=== PATIENT | female | born 1950 | race Caucasian/White ===

== ENCOUNTER 2020-10-17 18:18 | Inpatient (IN) | payer MEDICARE, OTHER, SELFPAY ==
[2020-10-17 18:05] VITALS: BP 165/63; PULSE 87; RESP 18; O2SAT 98
--- NOTE | 2020-10-17 18:45 | DI.RAD.S_ITS ---
PROCEDURE: XR HIP W PEL IF DONE RT 2V INDICATIONS: fall/unable to bare weight TECHNIQUE: AP pelvis with lateral view(s) of the right hip(s). COMPARISON: None. FINDINGS: Bones: Minimally displaced trochanteric fracture of the right hip. No dislocation. Pelvic ring appears intact. No suspicious bony lesions. Soft tissues: The visualized bowel gas pattern is normal. No suspicious soft tissue calcifications. IMPRESSION: Minimally displaced trochanteric fracture of the right hip. Dictated by: William Valdivia M.D. on 10/17/2020 at 20:51 Approved by: William Valdivia M.D. on 10/17/2020 at 20:52
[2020-10-17] MEDS: ONDANSETRON 4 MG/2 ML INJ IV (19:37)
[2020-10-17] MEDS: fentaNYL 100 MCG/2 ML INJ 50 MCG IV ×2 (19:37→20:15)
[2020-10-17 19:41] LABS: Add Manual Diff / Slide Review NO; Basophils Absolute Auto 100 /uL (0-100); Basophils Percent Auto 1.1 % (0-2); Eosinophils Absolute Auto 200 /uL (0-450); Eosinophils Percent Auto 2.1 % (2-4); Hematocrit 36.4 % (36-46); Hemoglobin 12.3 g/dL (12.0-16.0); Lymphocytes Absolute Auto 2000 /uL (1100-4500); Lymphocytes Percent Auto 24.3 % (25-40); Mean Corpuscular HGB Conc 33.7 % (30-36); Mean Corpuscular Hemoglobin 30.4 PG (26-34); Mean Corpuscular Volume 90.4 fL (80-100); Monocytes Absolute Auto 600 /uL (0-900); Monocytes Percent Auto 7.8 % (3-14); Neutrophils Absolute Auto 5400 /uL (1500-7000); Neutrophils Percent Auto 64.7 % (50-75); Platelet Count 261 X10^3/uL (150-400); Red Blood Cell Count 4.03 X10^6/uL (4.0-5.2); Red Cell Distribution Width 13.3 % (11.6-14.8); White Blood Cell Count 8.3 X10^3/uL (4.5-11.0)
[2020-10-17 19:45] VITALS: TEMP 37.1
[2020-10-17 19:53] LABS: Prothrombin Time 11.6 SECONDS (10.1-12.7)
[2020-10-17 20:05] LABS: Alanine Aminotransferase 24 IU/L (<35); Albumin 4.2 g/dL (3.5-5.0); Albumin Globulin Ratio 1.4 (1.0-2.8); Alkaline Phosphatase 73 U/L (38-126); Aspartate Aminotransferase 37 IU/L (14-36); BUN Creatinine Ratio 30.6 (6-22); Bilirubin Total 0.2 mg/dL (0.2-1.3); Blood Urea Nitrogen 19 mg/dL (7-17); Calcium 9.4 mg/dL (8.4-10.2); Carbon Dioxide 26 mmol/L (22-32); Chloride 105 mmol/L (98-107); Estimated Glomerular Filt Rate > 60.0 mL/min (>60); Globulin 2.9 g/dL (1.7-4.1); Glucose 113 mg/dL (80-110); HEMOLYSIS < 15 (0-50); Potassium 3.7 mmol/L (3.4-5.1); Sodium 140 mmol/L (137-145); Total Protein 7.1 g/dL (6.3-8.2)
--- NOTE | 2020-10-17 20:10 | ED_ITS ---
HPI - Extremity Injury (Lower) General Chief Complaint: Extremity Injury, Lower Stated Complaint: Fall/R hip pain Time Seen by Provider: 10/17/20 18:23 Source: patient Mode of arrival: Ambulatory Limitations: no limitations History of Present Illness HPI Narrative: 70-year-old female nonsmoker with noncontributory medical history presents with a chief complaint of a ground level fall in which she landed on her right hip and now has significant pain. She denies any head neck or back pain. She does not take blood thinners. She denies any prodromal symptoms and states that she was merely pulled over by her dog. She has significant pain with any range of motion and denies any numbness, tingling or weakness. MD complaint: hip injury Onset (ago): minute(s) Injury: Right: hip Type of Injury: blunt Place: street/outdoors Severity: severe Relieving factors: immobilization and rest Exacerbating factors: weight bearing, movement and palpation Context: fall and direct blow Other symptoms: none Related Data Home Medications Medication Instructions Recorded Confirmed atenolol [Tenormin] 25 mg PO BID 10/18/20 10/18/20 simvastatin 20 mg PO QPM 10/18/20 10/18/20 Allergies Allergy/AdvReac Type Severity Reaction Status Date / Time Penicillins Allergy Unknown Verified 10/17/20 19:34 Review of Systems Constitutional Constitutional: Denies chills, Denies fatigue, Denies fever(s), Denies frequent falls, Denies lethargy and Denies weakness Eyes Eyes: Denies change in vision, Denies eye discharge, Denies irritation and Denies loss of vision ENT Ears, Nose, Mouth, and Throat: Denies change in voice, Denies dizziness, Denies neck pain, Denies sore throat and Denies throat swelling Cardiovascular Cardiovascular: Denies chest pain, Denies irregular heart rhythm, Denies lightheadedness, Denies palpitations, Denies dyspnea, Denies dyspnea on exertion and Denies orthopnea Respiratory Respiratory: Denies cough, Denies dyspnea, Denies dyspnea on exertion and Denies wheezing Gastrointestinal Gastrointestinal: Denies abdominal pain, Denies change in bowel habits, Denies diarrhea, Denies nausea and Denies vomiting Musculoskeletal Musculoskeletal: Reports arthralgias, Denies neck pain and Denies numbness Integumentary/Breasts Skin/Breast: Denies pruritus, Denies erythema, Denies rash and Denies wounds Neurologic Neurologic: Denies behavioral changes, Denies confusion, Denies dizziness, Denies frequent falls, Denies loss of vision, Denies numbness and Denies weakness Psychiatric Psychiatric: Denies anxiety, Denies behavioral changes, Denies confusion, Denies depression, Denies homicidal ideation and Denies suicidal ideation Endocrine Endocrine: Denies fatigue, Denies flushing and Denies palpitations Hematologic/Lymphatic Hematologic/Lymphatic: Denies easy bruising Allergic/Immunologic Allergic/Immunologic: Denies urticaria, Denies throat swelling and Denies wheezing Patient History Social History household members: significant other and friend(s) Smoking Status: Never smoker Smoking Status: Never smoker Substance Use Type: does not use Exam Narrative Exam Narrative: GENERAL: [70] year old patient appears stated age. Well- nourished, well-developed patient, in obvious distress, clearly in pain HEAD: Atraumatic. Normocephalic. EYES: Pupils equal round and reactive. Extraocular motions intact. No scleral icterus. No injection or drainage. ENT: Nose without bleeding, purulent drainage. Throat without erythema, tonsillar hypertrophy or exudate. Airway patent. NECK: Trachea midline. Non tender CARDIOVASCULAR: Regular rate and rhythm without murmurs, gallops, or rubs. RESPIRATORY: Clear to auscultation. Breath sounds equal bilaterally. No wheezes, rales, or rhonchi. GASTROINTESTINAL: Abdomen soft, non-tender, nondistended. EXTREMITIES: Tender to palpation of right lateral hip, no obvious shortening or rotation, this is closed, isolated and neurovascularly intact BACK: Nontender without deformity or crepitance. No flank tenderness. NEURO: AOx3. SKIN: No rash or erythema of visible areas Initial Vital Signs Initial Vital Signs: Vital Signs Pulse Rate 87 10/17/20 18:05 Respiratory Rate 18 10/17/20 18:05 Blood Pressure 165/63 H 10/17/20 18:05 Pulse Oximetry 98 10/17/20 18:05 Course Orders Ordered: ED Orders 10/17/20 19:28 Complete Blood Count AUTO DIFF Stat Comprehensive Metabolic Panel Stat Prothrombin Time INR Stat 10/17/20 20:18 CT pelvis wo con Stat 10/17/20 21:34 COVID19 - ADMIT (LITHOPONE CHARGER swab/PCR) Stat Acetaminophen (Acetaminophen 325 Mg Tablet) 650 mg PO Q6HR PRN PRN Reason: Fever/Mild Pain (1-3) Al Hydrox/Mg Hydrox/Simethicone (Mag Hydrox/Alum/Simeth 30 Ml Udc) 30 ml PO Q6HR PRN PRN Reason: Dyspepsia Atenolol (Atenolol 25 Mg Tablet) 25 mg PO BID [facility] Docusate Sodium (Docusate 100 Mg Capsule) 100 mg PO BID [facility] Lactated Ringer's (Lactated Ringers) 1,000 mls @ 60 mls/hr IV CONT THOR Last Admin: 10/17/20 23:31 Dose: 60 mls/hr Documented by: KIRK Ketorolac Tromethamine (Ketorolac 30 Mg/Ml Vial) 30 mg IV Q6HR PRN PRN Reason: Pain, Severe (7-10) Stop: 10/22/20 22:20 Last Admin: 10/18/20 02:27 Dose: 30 mg Documented by: KIRK Magnesium Hydroxide (Magnesium Hydroxide 30 Ml Udc) 30 ml PO DAILY PRN PRN Reason: Constipation Naloxone HCl (Naloxone 0.4 Mg/Ml Vial) 0.2 mg IV Q2MIN PRN PRN Reason: Opiate Reversal Ondansetron HCl (Ondansetron 4 Mg/2 Ml Inj) 4 mg IV Q8HR PRN PRN Reason: Nausea And Vomiting Last Admin: 10/18/20 00:30 Dose: 4 mg Documented by: KIRK Oxycodone HCl (Oxycodone Ir 5 Mg Tablet) 5 mg PO Q6HR PRN PRN Reason: Pain, Moderate (4-6) Pantoprazole Sodium (Pantoprazole Dr 20 Mg Tablet) 20 mg PO 0600 [facility] Sennosides (Sennosides 8.6 Mg Tablet) 17.2 mg PO BEDTIME [facility] Discontinued Medications Atenolol (Atenolol 25 Mg Tablet) 25 mg PO NOW ONE Stop: 10/17/20 23:47 Last Admin: 10/18/20 00:22 Dose: 25 mg Documented by: KIRK Fentanyl (Fentanyl 100 Mcg/2 Ml Inj) 50 mcg IV NOW ONE Stop: 10/17/20 19:34 Last Admin: 10/17/20 19:37 Dose: 50 mcg Documented by: CATHY Fentanyl (Fentanyl 100 Mcg/2 Ml Inj) 50 mcg IV NOW ONE Stop: 10/17/20 20:13 Last Admin: 10/17/20 20:15 Dose: 50 mcg Documented by: CATHY Hydromorphone HCl (Hydromorphone 1 Mg Inj) 1 mg IV NOW ONE Stop: 10/17/20 20:27 Last Admin: 10/17/20 20:40 Dose: 1 mg Documented by: CATHY Hydromorphone HCl (Hydromorphone 1 Mg Inj) 1 mg IV NOW ONE Stop: 10/17/20 22:46 Last Admin: 10/17/20 22:48 Dose: 1 mg Documented by: CATHY Ondansetron HCl (Ondansetron 4 Mg/2 Ml Inj) 4 mg IV NOW ONE Stop: 10/17/20 19:34 Last Admin: 10/17/20 19:37 Dose: 4 mg Documented by: CATHY Consultations Consultation #1: discussed with Dr. Lange, request patient be kept NPO and will see early in the morning Consultation #2: hospitalist happy to accept Vital Signs Vital signs: Vital Signs - 8 hr 10/17/20 20:44 10/17/20 21:56 Pulse Rate 72 72 Respiratory Rate 16 17 Blood Pressure 153/72 H 168/72 H Pulse Oximetry 100 98 MDM - Extremity Injury (Lower) Lab Data Result diagrams: 10/17/20 19:28 10/17/20 19:28 Labs: Lab Results 10/17/20 10/17/20 10/17/20 Range/Units 19:28 19:28 19:28 WBC 8.3 (4.5-11.0) X10^3/uL RBC 4.03 (4.0-5.2) X10^6/uL Hgb 12.3 (12.0-16.0) g/dL Hct 36.4 (36-46) % MCV 90.4 (80-100) fL MCH 30.4 (26-34) PG MCHC 33.7 (30-36) % RDW 13.3 (11.6-14.8) % Plt Count 261 (150-400) X10^3/uL Neut % (Auto) 64.7 (50-75) % Lymph % (Auto) 24.3 L (25-40) % [place] % (Auto) 7.8 (3-14) % Eos % (Auto) 2.1 (2-4) % Baso % (Auto) 1.1 (0-2) % Neut # (Auto) 5400 (5895-8027) /uL Lymph # (Auto) 2000 (0546-4698) /uL [place] # (Auto) 600 (0-900) /uL Eos # (Auto) 200 (0-450) /uL Baso # (Auto) 100 (0-100) /uL PT 11.6 (10.1-12.7) SECONDS INR 1.0 (0.9-1.3) Sodium 140 (137-145) mmol/L Potassium 3.7 (3.4-5.1) mmol/L Chloride 105 (98-107) mmol/L Carbon Dioxide 26 (22-32) mmol/L BUN 19 H (7-17) mg/dL Creatinine 0.62 (0.52-1.04) mg/dL Estimated GFR > 60.0 (>60) mL/min BUN/Creatinine Ratio 30.6 H (6-22) Glucose 113 H (80-110) mg/dL Calcium 9.4 (8.4-10.2) mg/dL Magnesium (1.6-2.3) mg/dL Total Bilirubin 0.2 (0.2-1.3) mg/dL AST 37 H (14-36) IU/L ALT 24 (<35) IU/L Alkaline Phosphatase 73 (38-126) U/L Total Protein 7.1 (6.3-8.2) g/dL Albumin 4.2 (3.5-5.0) g/dL Globulin 2.9 (1.7-4.1) g/dL Albumin/Globulin Ratio 1.4 (1.0-2.8) SARS-CoV-2 (PCR) (Negative) 10/17/20 10/17/20 Range/Units 19:28 21:34 WBC (4.5-11.0) X10^3/uL RBC (4.0-5.2) X10^6/uL Hgb (12.0-16.0) g/dL Hct (36-46) % MCV (80-100) fL MCH (26-34) PG MCHC (30-36) % RDW (11.6-14.8) % Plt Count (150-400) X10^3/uL Neut % (Auto) (50-75) % Lymph % (Auto) (25-40) % [place] % (Auto) (3-14) % Eos % (Auto) (2-4) % Baso % (Auto) (0-2) % Neut # (Auto) (3921-8714) /uL Lymph # (Auto) (5795-9349) /uL [place] # (Auto) (0-900) /uL Eos # (Auto) (0-450) /uL Baso # (Auto) (0-100) /uL PT (10.1-12.7) SECONDS INR (0.9-1.3) Sodium (137-145) mmol/L Potassium (3.4-5.1) mmol/L Chloride (98-107) mmol/L Carbon Dioxide (22-32) mmol/L BUN (7-17) mg/dL Creatinine (0.52-1.04) mg/dL Estimated GFR (>60) mL/min BUN/Creatinine Ratio (6-22) Glucose (80-110) mg/dL Calcium (8.4-10.2) mg/dL Magnesium 2.1 (1.6-2.3) mg/dL Total Bilirubin (0.2-1.3) mg/dL AST (14-36) IU/L ALT (<35) IU/L Alkaline Phosphatase (38-126) U/L Total Protein (6.3-8.2) g/dL Albumin (3.5-5.0) g/dL Globulin (1.7-4.1) g/dL Albumin/Globulin Ratio (1.0-2.8) SARS-CoV-2 (PCR) Negative (Negative) Imaging Data Extremity x-ray #1: Radiologist's Impression: [address] [id number] ReportSigned Patient: Stephania Cruz#: [id number]: 1950cct:[id number]/Sex: 70 / FDate of Service: 10/17/20Loc: EDAccession Number: [id number] Procedure: XR hip w pel if done RT 2V Ordering Provider: Jean Bauman D.O. PROCEDURE: XR HIP W PEL IF DONE RT 2V INDICATIONS: fall/unable to bare weight TECHNIQUE: AP pelvis with lateral view(s) of the right hip(s). COMPARISON: None. FINDINGS: Bones: Minimally displaced trochanteric fracture of the right hip. No dislocation. Pelvic ring appears intact. No suspicious bony lesions. Soft tissues: The visualized bowel gas pattern is normal. No suspicious soft tissue calcifications. IMPRESSION: Minimally displaced trochanteric fracture of the right hip. Dictated by: William Valdivia M.D. on 10/17/2020 at 20:51 Approved by: William Valdivia M.D. on 10/17/2020 at 20:52 CT scan - abdomen/pelvis: Radiologist's Impression: [address] [id number] Scan ReportSigned Patient: Stephania Cruz#: [id number]: [id number]:[id number]/Sex: 70 / FDate of Service: 10/17/20Loc: EDAccession Number: [id number] Procedure: CT pelvis wo con Ordering Provider: Jean Bauman D.O. PROCEDURE: CT PEL WO CON INDICATIONS: severe pain, Right hip and groin TECHNIQUE: Noncontrast 2 mm axial sections acquired through the bony pelvis, with coronal and sagittal reformatting. COMPARISON: None. FINDINGS: Image quality: Excellent. Bones: Comminuted trochanteric fracture of the right hip. No other fractures or dislocations. Soft tissues: Unremarkable IMPRESSION: Comminuted trochanteric fracture of the right hip. Dictated by: William Valdivia M.D. on 10/17/2020 at 21:11 Approved by: William Valdivia M.D. on 10/17/2020 at 21:13 Discharge Plan Departure Patient Disposition: Admitted As Inpatient Clinical Impression: Hip fracture Admit Date/Time: 10/17/20 22:03 Admit Provider: Roselyn Rosenthal
--- NOTE | 2020-10-17 20:18 | DI.CT.S_ITS ---
PROCEDURE: CT PEL WO CON INDICATIONS: severe pain, Right hip and groin TECHNIQUE: Noncontrast 2 mm axial sections acquired through the bony pelvis, with coronal and sagittal reformatting. COMPARISON: None. FINDINGS: Image quality: Excellent. Bones: Comminuted trochanteric fracture of the right hip. No other fractures or dislocations. Soft tissues: Unremarkable IMPRESSION: Comminuted trochanteric fracture of the right hip. Dictated by: William Valdivia M.D. on 10/17/2020 at 21:11 Approved by: William Valdivia M.D. on 10/17/2020 at 21:13
[2020-10-17] MEDS: HYDROMORPHONE 1 MG INJ IV ×2 (20:40→22:48)
[2020-10-17 20:44] VITALS: BP 153/72; PULSE 72; RESP 16; O2SAT 100
[2020-10-17 21:56] VITALS: BP 168/72; PULSE 72; RESP 17; O2SAT 98
[2020-10-17 22:34] LABS: Magnesium 2.1 mg/dL (1.6-2.3)
[2020-10-17 22:35] LABS: COVID19 - ADMIT (NP swab/PCR) Negative (Negative)
[2020-10-17 22:49] VITALS: BP 141/71; PULSE 72; RESP 16
[2020-10-17 23:30] VITALS: O2SAT 97
[2020-10-17] MEDS: LACTATED RINGERS 1,000 ML 60 ML IV (23:31)
[2020-10-17 23:32] VITALS: BMI 28.2
[2020-10-18] VITALS (23 sets, daily range): BP systolic 117–153; BP diastolic 61–77; PULSE 49–68; RESP 9–18; TEMP 35.9–37.6; O2SAT 95–98; BMI 27.1
--- NOTE | 2020-10-18 | DI.RAD.S_ITS ---
PROCEDURE: XR HIP W PEL IF DONE RT 2V INDICATIONS: DHS TECHNIQUE: 4 immediate postoperative views of the hip were acquired after dynamic hip screw placement and lateral fixation plate.. COMPARISON: [facility], CR, XR HIP W PEL IF DONE RT 2V, 10/17/2020, 20:31. FINDINGS: Bones: No previously on identified fractures or dislocations. No suspicious bony lesions. The visualized pelvic ring appears intact. Soft tissues: No suspicious soft tissue calcifications or masses. IMPRESSION: Normal alignment is established after placement of right-sided dynamic hip screw associated with treatment of a minimally displaced inter trochanteric right hip fracture. Normal alignment is established for healing. Dictated by: Maciej Freeman M.D. on 10/18/2020 at 10:59 Approved by: Maciej Freeman M.D. on 10/18/2020 at 11:00
[2020-10-18] MEDS: atenoloL 25 MG TABLET PO ×3 (00:22→21:11)
[2020-10-18] MEDS: ONDANSETRON 4 MG/2 ML INJ IV ×2 (00:30→11:18)
[2020-10-18] MEDS: KETOROLAC 30 MG/ML VIAL IV (02:27)
--- NOTE | 2020-10-18 02:36 | PC.NURSE ---
Admitted to room 216 diagnosed with Right hip trochanteric fracture. Oriented to her room, showed her how to use her call light TV & bed controls. Fall precautions implemented, call light with in reached & bed alarm on. Instructed not to get OOB with out any assistance & to use the bedpan if she needs to have a bowel movement. Will cont. POC & monitor.
[2020-10-18 05:18] LABS: Add Manual Diff / Slide Review NO; Basophils Absolute Auto 100 /uL (0-100); Basophils Percent Auto 0.6 % (0-2); Eosinophils Absolute Auto 0 /uL (0-450); Eosinophils Percent Auto 0.1 % (2-4); Hematocrit 33.2 % (36-46); Hemoglobin 11.3 g/dL (12.0-16.0); Lymphocytes Absolute Auto 1500 /uL (1100-4500); Lymphocytes Percent Auto 14.7 % (25-40); Mean Corpuscular Hemoglobin 30.8 PG (26-34); Mean Corpuscular Volume 90.5 fL (80-100); Monocytes Absolute Auto 800 /uL (0-900); Monocytes Percent Auto 7.5 % (3-14); Neutrophils Absolute Auto 7800 /uL (1500-7000); Neutrophils Percent Auto 77.1 % (50-75); Platelet Count 217 X10^3/uL (150-400); Red Blood Cell Count 3.67 X10^6/uL (4.0-5.2); Red Cell Distribution Width 13.5 % (11.6-14.8); White Blood Cell Count 10.1 X10^3/uL (4.5-11.0)
[2020-10-18 05:28] LABS: INR 1.1 (0.9-1.3); Prothrombin Time 12.7 SECONDS (10.1-12.7)
[2020-10-18 05:34] LABS: BUN Creatinine Ratio 35.2 (6-22); Blood Urea Nitrogen 19 mg/dL (7-17); Calcium 9.1 mg/dL (8.4-10.2); Carbon Dioxide 27 mmol/L (22-32); Chloride 103 mmol/L (98-107); Estimated Glomerular Filt Rate > 60.0 mL/min (>60); Glucose 122 mg/dL (80-110); HEMOLYSIS 26 (0-50); Potassium 4.5 mmol/L (3.4-5.1); Sodium 134 mmol/L (137-145)
--- NOTE | 2020-10-18 05:46 | PM.HP.1 ---
History of Present Illness History of Present Illness Date Patient Seen: 10/17/20 Time Patient Seen: 22:23 Chief complaint: Fall/R hip pain Narrative: Patient is a 70-year-old female Madhavi Cruz who presents to the ED with a chief complaint of a ground level fall in which she landed on her right hip and now has significant pain. She denies any head neck or back pain. She does not take blood thinners. Denies hitting her head or loss of consciousness. She denies any prodromal symptoms and states that she was merely pulled over by her dog([place] Fernando) getting tangled up in his leash. She has significant pain with any range of motion and denies any numbness, tingling or weakness. Patient denies chest pain or shortness of breath. Patient has a history of mitral valve prolapse, hyperlipidemia, hypertension, and a pelvis fracture a few years ago that did not require surgical intervention. She had a bone density of few years ago but was only required to take calcium and vitamin-D. Upon admit to the floor patient is resting comfortably in bed and only has pain with movement her pain is well controlled at 4/10 at this time. Patient's vitals upon admit temp 98.7?, BP 160/72, HR 72, RR 17, O2 saturation 98% on room air. Patient's labs CBC WNL, CMP unremarkable. Pelvis CT:Comminuted trochanteric fracture of the right hip. Right Hip Xray:Minimally displaced trochanteric fracture of the right hip. Patient admitted for trochanter right hip fracture, NPO at midnight will have surgery tomorrow. Patient History Medical History (Updated 10/18/20 @ 05:53 by HELEN Love) History of deviated nasal septum Hyperlipidemia Hypertension Mitral valve prolapse Surgical History (Updated 10/18/20 @ 05:53 by HELEN Love) History of appendectomy History of cataract surgery Family & Social History Family History Mother Colon cancer Breast cancer Brother Bladder cancer Social History: household members significant other x 15 yrs, retired Prior Living Arrangements House Safety & Behavioral: Feels Safe in Current Yes Environment Been Physically Hurt or No Threatened By a Person Suicidal Ideation Description None Suicide Plan Description No Plan Tobacco & Substance use: Smoking Status quit 30 yrs ago alcohol intake frequency a few times a week 1-2 glasses of wine Substance Use Type Never Meds Home Medications and Allergies Home Medications Medication Instructions Recorded Confirmed Type atenolol [Tenormin] 25 mg PO BID 10/18/20 10/18/20 History simvastatin 20 mg PO QPM 10/18/20 10/18/20 History Allergies Allergy/AdvReac Type Severity Reaction Status Date / Time Penicillins Allergy Unknown Verified 10/17/20 19:34 Review of Systems Review of Systems ROS: Yes All systems reviewed with the patient and are negative except as otherwise documented Musculoskeletal Musculoskeletal: Reports arthralgias, Reports joint swelling, Reports limited range of motion and Reports radiating pain into limb Exam Vital Signs (past 8 hours): - 10/17/20 21:56 10/17/20 22:49 10/17/20 23:30 Temperature Pulse Rate 72 72 Respiratory Rate 17 16 Blood Pressure 168/72 H 141/71 H Pulse Oximetry 98 97 10/18/20 00:05 10/18/20 03:00 10/18/20 03:53 Temperature 98.3 F 98.0 F Pulse Rate 59 L 56 L Respiratory Rate 18 18 Blood Pressure 138/77 118/75 Pulse Oximetry 96 98 98 Oxygen Delivery Method Room Air Oxygen Flow Rate 0 Narrative Exam Narrative: General: Patient is a well-developed, well-nourished female who appears younger than stated age, in mild discomfort at this time. HEENT: Normocephalic, atraumatic, extraocular muscles intact, oral pharynx is clear and mucous membranes are moist. Neck is supple and symmetric, trachea is midline, no adenopathy, no thyroid enlargement, nontender, no masses palpated. Negative for JVD Chest: Normal AP diameter and contour without kyphoscoliosis, no nasal flaring, retractions, or tachypneic labored Lungs: Auscultation of all lung gonzalez are clear without adventitious sounds, wheezes, rhonchi, or rales. Cardio: S1 & S2 with regular rate and rhythm without murmur, rubs, or gallops, no carotid bruit, no cardiac pulsations present. Abdomen: Soft nontender, negative for organomegaly, or masses. Bowel sounds are present in all 4 quadrants without guarding or rebound, no CVA tenderness. Musculoskeletal: Right hip :Tender to palpation, no obvious shortening or rotation, this is closed, isolated and neurovascularly intact, without signs of infection. Skin: Warm dry and intact without rashes, ulcerations or petechiae. Neuro: Alert and orientated x3,sensation to touch intact, no gross deficits noted of cranial nerves. Psych: Patient has a well-kept appearance, appropriate affect, mental status attitude thought context and judgment are appropriate for age. Objective Labs Result Diagrams: 10/18/20 05:10 10/18/20 05:10 Labs: Laboratory Results - last 24 hr 10/17/20 10/17/20 10/17/20 19:28 19:28 19:28 WBC 8.3 RBC 4.03 Hgb 12.3 Hct 36.4 MCV 90.4 MCH 30.4 MCHC 33.7 RDW 13.3 Plt Count 261 Neut % (Auto) 64.7 Lymph % (Auto) 24.3 L [place] % (Auto) 7.8 Eos % (Auto) 2.1 Baso % (Auto) 1.1 Neut # (Auto) 5400 Lymph # (Auto) 2000 [place] # (Auto) 600 Eos # (Auto) 200 Baso # (Auto) 100 PT 11.6 INR 1.0 Sodium 140 Potassium 3.7 Chloride 105 Carbon Dioxide 26 BUN 19 H Creatinine 0.62 Estimated GFR > 60.0 BUN/Creatinine Ratio 30.6 H Glucose 113 H Calcium 9.4 Magnesium Total Bilirubin 0.2 AST 37 H ALT 24 Alkaline Phosphatase 73 Total Protein 7.1 Albumin 4.2 Globulin 2.9 Albumin/Globulin Ratio 1.4 SARS-CoV-2 (PCR) 10/17/20 10/17/20 10/18/20 19:28 21:34 05:10 WBC 10.1 RBC 3.67 L Hgb 11.3 L Hct 33.2 L MCV 90.5 MCH 30.8 MCHC 34.0 RDW 13.5 Plt Count 217 Neut % (Auto) 77.1 H Lymph % (Auto) 14.7 L [place] % (Auto) 7.5 Eos % (Auto) 0.1 L Baso % (Auto) 0.6 Neut # (Auto) 7800 H Lymph # (Auto) 1500 [place] # (Auto) 800 Eos # (Auto) 0 Baso # (Auto) 100 PT INR Sodium Potassium Chloride Carbon Dioxide BUN Creatinine Estimated GFR BUN/Creatinine Ratio Glucose Calcium Magnesium 2.1 Total Bilirubin AST ALT Alkaline Phosphatase Total Protein Albumin Globulin Albumin/Globulin Ratio SARS-CoV-2 (PCR) Negative 10/18/20 10/18/20 05:10 05:10 WBC RBC Hgb Hct MCV MCH MCHC RDW Plt Count Neut % (Auto) Lymph % (Auto) [place] % (Auto) Eos % (Auto) Baso % (Auto) Neut # (Auto) Lymph # (Auto) [place] # (Auto) Eos # (Auto) Baso # (Auto) PT 12.7 INR 1.1 Sodium 134 L Potassium 4.5 Chloride 103 Carbon Dioxide 27 BUN 19 H Creatinine 0.54 Estimated GFR > 60.0 BUN/Creatinine Ratio 35.2 H Glucose 122 H Calcium 9.1 Magnesium Total Bilirubin AST ALT Alkaline Phosphatase Total Protein Albumin Globulin Albumin/Globulin Ratio SARS-CoV-2 (PCR) Assessment & Plan Assessment & Plan narrative: Patient requires admission for right hip greater trochanter fracture repair. Patient's estimated stay to be greater than 3 midnights. 1. Right greater trochanter hip fracture secondary to ground level fall, acute, present on admission vitals upon admit temp 98.7?, BP 160/72, HR 72, RR 17, O2 saturation 98% on room air. Patient's labs CBC WNL, CMP unremarkable. Pelvis CT:Comminuted trochanteric fracture of the right hip. Right Hip Xray:Minimally displaced trochanteric fracture of the right hip. -ortho to consult tomorrow -patient NPO for procedure tomorrow, Encarnacion Cath placed, patient on strict bedrest, fall precautions in place -patient admitted to [facility], vital signs q.4 hours, intake and output monitored Q shift, weight measure daily, -IV fluid:LR@60cc/hour -Encarnacion catheter placed -manage patient's pain hydration and comfort -labs ordered: CBC, CMP, Mag, PT in am - recommend outpatient bone density testing -consults ordered physical therapy, occupational therapy. -prevention vaccine: Recommend seasonal flu, shingles, pneumonia, COVID-19 when available 2. Essential hypertension, acute on chronic, present on admission, in the setting of hyperlipidemia and mitral valve prolapse, chronic, not present on admission -Continue patient's atenolol, unable to provide patient's simvastatin as we no longer carry this medication in our pharmacy. Code status: Full code Surrogate decision maker: René Lopez (POA) COVID PCR: Negative VTE/DVT prophylaxis: Medication contraindicated due to surgery, SCDs on left only Scores GCS [place] coma scale eye opening: Spontaneous Kin coma scale verbal response: Orientated Kin coma scale motor response: Obey commands Kin coma scale total score: 15 Wells' Criteria for PE Clinical signs and symptoms of DVT: No PE is #1 Dx or equally likely: No Heart rate > 100: No Immobilization at least 3 days or surg in previous 4 weeks: No History of PE or DVT: No Hemoptysis: No Malignancy w/Treatment within 6 months or palliative: No Wells' PE Score total: 0 Quality MIPS - Admit I confirm the patient?s Advance Care Plan is present, Code status is documented, Surrogate decision maker is in patient?s record [If Yes, STOP here]: Yes
[2020-10-18] MEDS: LACTATED RINGERS 1,000 ML 42 ML IV (08:00)
--- NOTE | 2020-10-18 08:07 | P.CONS_ITS ---
History of Present Illness Consult details Date Patient Seen: 10/18/20 Time Patient Seen: 07:50 Chief complaint: Fall/R hip pain Reason for consult: Right intertrochanteric hip fracture Requesting provider: Jean Bauman Narrative: The patient is a 70-year-old woman who was walking her [place] Zamora yesterday afternoon when the dog ran after a rabbit and yanked on the leash and she suffered a fall onto her right hip. She was unable to walk afterwards and was taken to [facility] where radiographs and CT scan diagnosed an intertrochanteric hip fracture on the right. Orthopedic consultation has been obtained for definitive management of the fracture. Meds Home Medications and Allergies Home Medications Medication Instructions Recorded Confirmed Type atenolol [Tenormin] 25 mg PO BID 10/18/20 10/18/20 History simvastatin 20 mg PO QPM 10/18/20 10/18/20 History Allergies Allergy/AdvReac Type Severity Reaction Status Date / Time Penicillins Allergy Unknown Verified 10/17/20 19:34 Review of Systems Review of Systems ROS: Yes All systems reviewed with the patient and are negative except as otherwise documented Exam Vital Signs (past 8 hours): - 10/18/20 03:00 10/18/20 03:53 Temperature 98.0 F Pulse Rate 56 L Respiratory Rate 18 Blood Pressure 118/75 Pulse Oximetry 98 98 Oxygen Delivery Method Room Air Oxygen Flow Rate 0 Narrative Exam Narrative: The patient is examined while in her hospital bed. She is comfortable unless she is moved. Right leg is externally rotated and shortened. Calf is soft. Light touch and motion are intact in the right lower extremity. She has a 2+ dorsalis pedis pulse. Objective Labs Result Diagrams: 10/18/20 05:10 10/18/20 05:10 Labs: Laboratory Results - last 24 hr 10/17/20 10/17/20 10/17/20 19:28 19:28 19:28 WBC 8.3 RBC 4.03 Hgb 12.3 Hct 36.4 MCV 90.4 MCH 30.4 MCHC 33.7 RDW 13.3 Plt Count 261 Neut % (Auto) 64.7 Lymph % (Auto) 24.3 L [place] % (Auto) 7.8 Eos % (Auto) 2.1 Baso % (Auto) 1.1 Neut # (Auto) 5400 Lymph # (Auto) 2000 [place] # (Auto) 600 Eos # (Auto) 200 Baso # (Auto) 100 PT 11.6 INR 1.0 Sodium 140 Potassium 3.7 Chloride 105 Carbon Dioxide 26 BUN 19 H Creatinine 0.62 Estimated GFR > 60.0 BUN/Creatinine Ratio 30.6 H Glucose 113 H Calcium 9.4 Magnesium Total Bilirubin 0.2 AST 37 H ALT 24 Alkaline Phosphatase 73 Total Protein 7.1 Albumin 4.2 Globulin 2.9 Albumin/Globulin Ratio 1.4 SARS-CoV-2 (PCR) 10/17/20 10/17/20 10/18/20 19:28 21:34 05:10 WBC 10.1 RBC 3.67 L Hgb 11.3 L Hct 33.2 L MCV 90.5 MCH 30.8 MCHC 34.0 RDW 13.5 Plt Count 217 Neut % (Auto) 77.1 H Lymph % (Auto) 14.7 L [place] % (Auto) 7.5 Eos % (Auto) 0.1 L Baso % (Auto) 0.6 Neut # (Auto) 7800 H Lymph # (Auto) 1500 [place] # (Auto) 800 Eos # (Auto) 0 Baso # (Auto) 100 PT INR Sodium Potassium Chloride Carbon Dioxide BUN Creatinine Estimated GFR BUN/Creatinine Ratio Glucose Calcium Magnesium 2.1 Total Bilirubin AST ALT Alkaline Phosphatase Total Protein Albumin Globulin Albumin/Globulin Ratio SARS-CoV-2 (PCR) Negative 10/18/20 10/18/20 05:10 05:10 WBC RBC Hgb Hct MCV MCH MCHC RDW Plt Count Neut % (Auto) Lymph % (Auto) [place] % (Auto) Eos % (Auto) Baso % (Auto) Neut # (Auto) Lymph # (Auto) [place] # (Auto) Eos # (Auto) Baso # (Auto) PT 12.7 INR 1.1 Sodium 134 L Potassium 4.5 Chloride 103 Carbon Dioxide 27 BUN 19 H Creatinine 0.54 Estimated GFR > 60.0 BUN/Creatinine Ratio 35.2 H Glucose 122 H Calcium 9.1 Magnesium Total Bilirubin AST ALT Alkaline Phosphatase Total Protein Albumin Globulin Albumin/Globulin Ratio SARS-CoV-2 (PCR) Radiographs and a CT scan obtained yesterday evening are reviewed. These reveal a minimally displaced intertrochanteric fracture of the right hip. Assessment & Plan Assessment & Plan narrative: The patient is a relatively healthy 70-year-old woman who had a fall from ground level yesterday sustaining a right intertrochanteric hip fracture. She has agreed to open reduction internal fixation with a dynamic hip screw after discussion of the risks benefits and alternatives. Risks discussed included but were not limited to: Cutting out of the screw, infection, nerve damage, bleeding requiring transfusion, deep venous thrombosis, pulmonary embolism, stroke, myocardial infarction, permanent paralysis, aspiration pneumonia and . She has given her signed informed consent after this discussion. COVID-19 COVID-19 status: Negative Result date/Date tested (Pos, Neg/Pending): 10/17/20 Time Spent With Patient Time with patient: 15-24 minutes
[2020-10-18] MEDS: CEFAZOLIN 1 GM VIAL 2 GM IV (08:43)
--- NOTE | 2020-10-18 09:06 | SUR.OPER ---
Head on pillow. Supine on fracture table with operative leg secured in traction. Other leg secured in well leg woodson. Arms across chest, secured with sheet.
[2020-10-18] MEDS: BUPIVACAINE 0.5% W/ EPI (PF) 30 ML VIAL INJ (09:11)
[2020-10-18] MEDS: TRANEXAMIC ACID 1,000 MG in SODIUM CHLORIDE 0.9% 100 ML 200 ML IV (09:33)
[2020-10-18] MEDS: HYDROMORPHONE 2 MG INJ IV ×2 (10:07→10:12)
--- NOTE | 2020-10-18 10:10 | PM.OP.1 ---
Operative Date/Time/Diagnoses Date of procedure: 10/18/20 Time of procedure: 10:10 Pre-op diagnosis: Right intertrochanteric femur fracture Post-op diagnosis: same Procedure & Clinicians Procedure: Open reduction internal fixation of right hip fracture with dynamic hip screw Same procedure as scheduled: Yes Indications: The patient is a 70-year-old woman who was pulled to the ground by her [place] Zamora yesterday. She has agreed to fixation of her intertrochanteric fracture after discussion of the risks benefits and alternatives as documented in her preoperative consult. Surgeon: Figueroa Lange Click Yes if Unassisted: Yes Anesthesia Type: General and Local Operative Notes Findings: Intertrochanteric fracture with satisfactory reduction Closure Type: primary Specimen(s): none sent Prosthetic devices, grafts, tissues, transplants, or devices: Implants used in this procedure were manufactured by the [employer] and included a 135 degree long barrel 4 hole side plate, an 85 mm lag screw and 4 cortical screws for the plate. Applied: catheter and implant(s) Estimated Blood Loss (mL): 200 Blood products transfused: none Procedure in detail: The patient was taken to the operating room and placed on the operating room table in the supine position after undergoing an anesthetic on her hospital bed. She was placed in traction for the right leg and the left leg was placed in the well leg woodson. All pressure points were well padded. Traction was applied to the right leg and internal rotation. The reduction was confirmed as being satisfactory on the AP and lateral views. An approximately 10 cm incision was created along the lateral aspect of the femoral shaft proximally and carried to the fascia mariposa sharply. The fascia mariposa was incised as was the underlying fascia of the vastus lateralis. The muscle was split bluntly using a Elliott elevator. The appropriate guide was used to place a guide pin in the center of the femoral head on the AP and lateral views. This was measured, 5 mm subtracted from the length from the subchondral bone and the triple Reamer set. After use of the triple Reamer the lag screw was placed. The lateral plate was then impacted into position. Position of all hardware was verified in the AP and lateral views. The screws were then placed in the lateral plate to affix it to the femur. Once again position of all hardware and the fracture was confirmed as being satisfactory in both the AP and lateral views. The wound was copiously irrigated with sterile saline. The fascia of the vastus lateralis was closed with a running 2 0 Vicryl, the fascia mariposa was closed with a running and interrupted 0 Vicryl. The subcutaneous layer was closed with interrupted and running 3-0 Vicryl and the skin with lauren. 20 mL of 0.5% Marcaine were injected around the wound for postoperative pain control. Dressings of Xeroform, 4x4s, and ABD and adhesive dressing were applied. The patient was then transported to the recovery room in good condition having tolerated the procedure well. Complications: none Post-operative Condition: stable Disposition: PACU Plan for aftercare: The patient will be allowed to weight bear as tolerated. She will be discharged when she is stable for her home environment.
[2020-10-18] MEDS: OXYCODONE IR 5 MG TABLET PO (10:12)
[2020-10-18] MEDS: LACTATED RINGERS 1,000 ML 125 ML IV ×2 (14:21→22:19)
[2020-10-18] MEDS: KETOROLAC 10 MG TABLET PO ×2 (14:21→19:23)
[2020-10-18] MEDS: ACETAMINOPHEN 325 MG TABLET 975 MG PO ×2 (14:21→19:24)
--- NOTE | 2020-10-18 15:10 | PT.IIE ---
Current Diagnoses Displaced fracture of greater trochanter of right femur, initial encounter for closed fracture (10/17/20) Surgery Performed Operation Date: 10/18/20 08:30 Actual Procedures p ORIF Hip DHS(Right) - Figueroa Lange MD Surgical History (Last Reviewed 10/18/20 @ 08:09 by Figueroa Lange MD) History of appendectomy History of cataract surgery Medical History (Last Updated 10/18/20 @ 08:08 by Figueroa Lange MD) History of deviated nasal septum Hyperlipidemia Hypertension Mitral valve prolapse Pelvic fracture Physical Therapy Inpatient Evaluation/Re-Eval M1 PT/OT-IP Prior Functional Status Start: 10/18/20 16:35 Freq: NEEDED Status: Active Protocol: Document 10/18/20 15:10 AB (Rec: 10/18/20 16:53 AB [id number]) Medical Review Prior Functional Status Medical History Reviewed Yes Communication able to make needs known Mobility and Gait pt stated that she is independent with all mobilities and ambulation without AD Social History Household Members significant other,friend(s) Living Arrangements House Number of Floors (Floors) Two Floors Number of Stairs To Enter/Railing? pt states on main level of the house has no steps to enter Home Environment Standard Height Toilet,Walk in Shower Home Equipment Hand Held Shower,Grab Bars In Shower Employment Status Retired Additional Social History Comment has an adjustable bed M2 PT-IP Current Condition Start: 10/18/20 16:35 Freq: NEEDED Status: Active Protocol: Document 10/18/20 15:10 AB (Rec: 10/18/20 16:53 AB [email or web address]) Physical Therapy Current Condition Current Condition Evaluation Date 10/18/20 Treatment Diagnosis R femur fx s/p ORIF; difficulty in walking Onset Date 10/17/20 Weight Bearing Status Weight Bearing Status Weight Bear as Tolerated Allowed Weight Bearing Amount (enter % RLE WBAT or #) (%) M3 PT-IP Subjective Start: 10/18/20 16:35 Freq: NEEDED Status: Active Protocol: Document 10/18/20 15:10 AB (Rec: 10/18/20 16:53 AB [email or web address]) Subjective Physical Therapy Visit Type Type Initial Evaluation Visit Start Time 15:10 Visit Stop Time 16:15 Total Visit Minutes 65 Number of BAND SAW RUNNER Visits 0 Physical Therapy Visit Comments Patient Comments pt is agreeable to do PT Therapy Pain Assessment Pain When Pain Assessed At Rest Pain Present Pain Present Pain Reported Location Right Hip Intensity 6 Scale Used Numeric (0 - 10) Pain Management Techniques Modification of Treatment,Re- positioning,Timing of Activity with Medications M4 PT-IP Mobility and Gait Start: 10/18/20 16:35 Freq: NEEDED Status: Active Protocol: Document 10/18/20 15:10 AB (Rec: 10/18/20 16:53 AB [email or web address]) PT-Bed Mobility Assessment Supine to Sit Supine to Sit Maximum Assistance Sit to Supine Sit to Supine Maximum Assistance Scooting Scooting to Edge of Bed Maximum Assistance PT-Transfer Assessment Sit to and From Stand Sit to and from Stand Maximum Assistance,1 Person Assistance,2 Person Assistance ,Use of Upper Extremities Equipment Transfer Assistive Device Gait Belt,Front Wheeled Walker Orthotic/Prosthetic Devices or Brace: No Comments Mobility Comments BP: 138/77. pt completed supine to sit max A and max cues. pt with increase RLE guarding during mobility. pt was able to sit on EOB SBA. completed sit to stand max A x 1-2 and max cues. pt requiring max A for RLE stabilization and max cues to activate quads. pt has decrease proprioception on RLE and stated that she does not know if R knee is straight or bent but able to feel the floor with her feet. pt was able to march in placed max A and max cues but c/o feeling dizzy and instructed to sit back down. pt. requested to go back to bed. completed sit to supine max A and max cues. positioned pt in bed. call light and table placed within reach. BP checked: 145/78 Gait Assessment Comments Gait Comments marched in place max A and max cues for quads activation PT-Balance Assessment Sitting Balance and Reactions Static Sitting Balance Ability Good Dynamic Sitting Balance Ability Good Standing Balance and Reactions Static Standing Balance Ability Poor Dynamic Standing Balance Ability Poor Device Used FWW M5 PT-IP Objective Assessments Start: 10/18/20 16:35 Freq: NEEDED Status: Active Protocol: Document 10/18/20 15:10 AB (Rec: 10/18/20 16:53 AB [email or web address]) Orientation Orientation/Cognition Level of Alertness Alert Orientation Name,Place,Situation Safety Awareness Decreased Safety Awareness Gross Range of Motion Lower Extremity ROM Assessment Right Impaired Impairments increase RLE muscle guarding limiting PROM Strength Lower Extremity Strength Assessment Right Impaired Knee 3-/5 Muscle Tone Muscle Tone WNL Yes M6 PT-IP Treatment Start: 10/18/20 16:35 Freq: NEEDED Status: Active Protocol: Document 10/18/20 15:10 AB (Rec: 10/18/20 16:53 AB [id number]) Physical Therapy Treatment Exercises Exercises Heel Slides Education Education Provided Precautions,Weight Bearing Status,Post-Op Packet,Safety Equipment Issued Equipment Type and Company reviewed post-op folder with pt and HEP M7 PT-IP Assessment and Plan Start: 10/18/20 16:35 Freq: NEEDED Status: Active Protocol: Document 10/18/20 15:10 AB (Rec: 10/18/20 16:53 AB [id number]) PT Summary Assessment and Plan Potential Rehabilitation Potential Good Status of Condition at Evaluation Evolving Summary Impairments Pain,ROM,Strength,Balance, Coordination,Sensation,Tone, Cognition,Bed Mobility, Transfers,Gait,Activity Tolerance Assessment Summary pt sustained a R femur fracture after a fall and underwent ORIF POD 0. pt is WBAT on RLE. pt requiring max A with standing and required max A for RLE stabilization and quads activation. d/c plan depending on pt but informed regarding possible SNF. also informed regarding caregiver training when appropriate if pt is safe to d /c home instead. pt was not able to ambulate today and will assess mobility for safe d/c plan. informed pt regarding FWW need and prefers PT to dispense her a FWW. will dispense FWW on d/c if pt is safe to dc home. Goals Bed Mobility Goal Standby Assistance Transfer Goal Standby Assistance,Front Wheeled Walker Gait Goal Standby Assistance,Front Wheel Walker Gait Distance 100 Days to Meet Goals 5 Frequency of Treatment Frequency Of Treatment Twice a Day Treatment Plan Physical Therapy Treatment Plan Bed Mobility Training,Transfer Training,Gait Training, Therapeutic Exercise,Balance Retraining,Post Op Education, Discharge Planning,Hot or Cold Pack,Neuromuscular Re-ed, Coordination Retraining,Manual Therapy Precautions Other Precautions RLE WBAT Recommendations To Nursing Amount of Assist Needed PT/OT Assist Only Discharge Recommendations PT Discharge Recommendations Home with 24/7 Assist Available,Home Health,SNF Rehab,Outpatient PT,Home vs SNF Transportation Needs at Discharge Private Vehicle,Wheelchair/ Cabulance
--- NOTE | 2020-10-18 17:59 | P.PN_ITS ---
Subjective Subjective Date Patient Seen: 10/18/20 Time Patient Seen: 11:00 Interval history: This is a 70-year-old female with a past medical history of hypertension hyperlipidemia who was admitted after ground level fall suffering a right greater trochanteric hip fracture. She underwent ORIF today with orthopedic surgery. She reports her pain is currently controlled shortly after surgery. She denies any chest pain, palpitations, shortness of breath, lower ex tremity edema, fever, chills, abdominal pain. She did develop generalized malaise and nausea after taking pain medications and requested not to take any narcotics. Exam Vital Signs (past 8 hours): - 10/18/20 10:02 10/18/20 10:12 10/18/20 10:27 Temperature 97 F L 97 F L 98.3 F Pulse Rate 57 L 57 L 55 L Respiratory Rate 14 11 L 12 Blood Pressure 146/75 H 139/67 132/68 Pulse Oximetry 98 95 96 10/18/20 10:28 10/18/20 10:50 10/18/20 11:20 Temperature 96.7 F L 98.0 F Pulse Rate 51 L 50 L Respiratory Rate 16 16 Blood Pressure 142/76 H 141/69 H Pulse Oximetry 98 97 98 10/18/20 11:50 10/18/20 12:50 10/18/20 13:50 Temperature 98.2 F 98.2 F 98.5 F Pulse Rate 49 L 51 L 58 L Respiratory Rate 16 16 16 Blood Pressure 136/64 118/61 125/74 Pulse Oximetry 96 96 98 10/18/20 14:51 10/18/20 15:27 10/18/20 17:56 Temperature Pulse Rate 58 L Respiratory Rate 17 Blood Pressure 134/68 Pulse Oximetry 96 97 97 Oxygen Delivery Method Room Air Oxygen Flow Rate 0 Narrative Exam Narrative: General: Patient is a well-developed, well-nourished female who appears younger than stated age, in mild discomfort at this time. HEENT: Normocephalic, atraumatic, extraocular muscles intact, oral pharynx is clear and mucous membranes are moist. Neck is supple and symmetric, trachea is midline, no adenopathy, no thyroid enlargement, nontender, no masses palpated. Negative for JVD Chest: Normal AP diameter and contour without kyphoscoliosis, no nasal flaring, retractions, or tachypneic labored Lungs: Auscultation of all lung gonzalez are clear without adventitious sounds, wheezes, rhonchi, or rales. Cardio: S1 & S2 with regular rate and rhythm without murmur, rubs, or gallops, no carotid bruit, no cardiac pulsations present. Abdomen: Soft nontender, negative for organomegaly, or masses. Bowel sounds are present in all 4 quadrants without guarding or rebound, no CVA tenderness. Musculoskeletal: right hip dressing c/d/i. no edema. Skin: Warm dry and intact without rashes, ulcerations or petechiae. Neuro: Alert and orientated x3,sensation to touch intact, no gross deficits noted of cranial nerves. Psych: Patient has a well-kept appearance, appropriate affect, mental status attitude thought context and judgment are appropriate for age. Objective Labs Result Diagrams: 10/18/20 05:10 10/18/20 05:10 Labs: Laboratory Results - last 24 hr 10/17/20 10/17/20 10/17/20 19:28 19:28 19:28 WBC 8.3 RBC 4.03 Hgb 12.3 Hct 36.4 MCV 90.4 MCH 30.4 MCHC 33.7 RDW 13.3 Plt Count 261 Neut % (Auto) 64.7 Lymph % (Auto) 24.3 L [place] % (Auto) 7.8 Eos % (Auto) 2.1 Baso % (Auto) 1.1 Neut # (Auto) 5400 Lymph # (Auto) 2000 [place] # (Auto) 600 Eos # (Auto) 200 Baso # (Auto) 100 PT 11.6 INR 1.0 Sodium 140 Potassium 3.7 Chloride 105 Carbon Dioxide 26 BUN 19 H Creatinine 0.62 Estimated GFR > 60.0 BUN/Creatinine Ratio 30.6 H Glucose 113 H Calcium 9.4 Magnesium Total Bilirubin 0.2 AST 37 H ALT 24 Alkaline Phosphatase 73 Total Protein 7.1 Albumin 4.2 Globulin 2.9 Albumin/Globulin Ratio 1.4 SARS-CoV-2 (PCR) 10/17/20 10/17/20 10/18/20 19:28 21:34 05:10 WBC 10.1 RBC 3.67 L Hgb 11.3 L Hct 33.2 L MCV 90.5 MCH 30.8 MCHC 34.0 RDW 13.5 Plt Count 217 Neut % (Auto) 77.1 H Lymph % (Auto) 14.7 L [place] % (Auto) 7.5 Eos % (Auto) 0.1 L Baso % (Auto) 0.6 Neut # (Auto) 7800 H Lymph # (Auto) 1500 [place] # (Auto) 800 Eos # (Auto) 0 Baso # (Auto) 100 PT INR Sodium Potassium Chloride Carbon Dioxide BUN Creatinine Estimated GFR BUN/Creatinine Ratio Glucose Calcium Magnesium 2.1 Total Bilirubin AST ALT Alkaline Phosphatase Total Protein Albumin Globulin Albumin/Globulin Ratio SARS-CoV-2 (PCR) Negative 10/18/20 10/18/20 05:10 05:10 WBC RBC Hgb Hct MCV MCH MCHC RDW Plt Count Neut % (Auto) Lymph % (Auto) [place] % (Auto) Eos % (Auto) Baso % (Auto) Neut # (Auto) Lymph # (Auto) [place] # (Auto) Eos # (Auto) Baso # (Auto) PT 12.7 INR 1.1 Sodium 134 L Potassium 4.5 Chloride 103 Carbon Dioxide 27 BUN 19 H Creatinine 0.54 Estimated GFR > 60.0 BUN/Creatinine Ratio 35.2 H Glucose 122 H Calcium 9.1 Magnesium Total Bilirubin AST ALT Alkaline Phosphatase Total Protein Albumin Globulin Albumin/Globulin Ratio SARS-CoV-2 (PCR) [facility] Medical History (Updated 10/18/20 @ 08:08 by Figueroa Lange MD) History of deviated nasal septum Hyperlipidemia Hypertension Mitral valve prolapse Pelvic fracture Surgical History History of appendectomy History of cataract surgery Family History Mother Colon cancer Breast cancer Brother Bladder cancer Social History household members: significant other and friend(s) Smoking Status: Never smoker Assessment & Plan Assessment & Plan narrative: This is a 70-year-old female with a past medical history of hypertension hyperlipidemia who was admitted after ground level fall suffering a right greater trochanteric hip fracture. She underwent ORIF today with orthopedic surgery. 1. Right greater trochanter hip fracture secondary to ground level fall, acute, present on admission -likely pathologic secondary to osteoporosis given nature of her fall. - now s/p ORIF with Dr. Lange on 10/18/20. - PT/OT to start - continue pain control, patient with nausea on opiates will try with tylenol and toradol for now. 2. Essential hypertension, chronic - continue home atenolol 3. hyperlipidemia -continue home medication, simvastatin no long in our pharmacy, patient to bring her own in. Code status: Full code Surrogate decision maker: René Lopez (POAna) COVID PCR: Negative VTE/DVT prophylaxis: per ortho.
[2020-10-18] MEDS: ATORVASTATIN 20 MG TABLET 10 MG PO (21:11)
[2020-10-18] MEDS: DOCUSATE 100 MG CAPSULE PO (21:11)
[2020-10-18] MEDS: MELATONIN 3 MG TABLET 6 MG PO (21:11)
[2020-10-18] MEDS: TRAZODONE 50 MG TABLET PO (21:21)
[2020-10-19] VITALS (7 sets, daily range): BP systolic 124–128; BP diastolic 65–66; PULSE 53–55; RESP 16; TEMP 36.3–36.8; O2SAT 96–98
[2020-10-19] MEDS: LACTATED RINGERS 1,000 ML 125 ML IV (02:05)
[2020-10-19] MEDS: KETOROLAC 10 MG TABLET PO ×3 (02:05→14:29)
[2020-10-19 05:42] LABS: Hematocrit 28.2 % (36-46); Hemoglobin 9.5 g/dL (12.0-16.0); Mean Corpuscular HGB Conc 33.7 % (30-36); Mean Corpuscular Hemoglobin 30.7 PG (26-34); Mean Corpuscular Volume 91.2 fL (80-100); Platelet Count 172 X10^3/uL (150-400); Red Blood Cell Count 3.09 X10^6/uL (4.0-5.2); Red Cell Distribution Width 13.4 % (11.6-14.8); White Blood Cell Count 9.4 X10^3/uL (4.5-11.0)
[2020-10-19 05:53] LABS: BUN Creatinine Ratio 27.4 (6-22); Blood Urea Nitrogen 17 mg/dL (7-17); Calcium 8.9 mg/dL (8.4-10.2); Carbon Dioxide 29 mmol/L (22-32); Chloride 106 mmol/L (98-107); Estimated Glomerular Filt Rate > 60.0 mL/min (>60); Glucose 112 mg/dL (80-110); HEMOLYSIS < 15 (0-50); Magnesium 2.1 mg/dL (1.6-2.3); Potassium 4.3 mmol/L (3.4-5.1); Sodium 137 mmol/L (137-145)
[2020-10-19] MEDS: ENOXAPARIN 40 MG/0.4 ML SYRINGE SUBCUT (08:48)
[2020-10-19] MEDS: ACETAMINOPHEN 325 MG TABLET 975 MG PO ×2 (08:48→14:30)
[2020-10-19] MEDS: DOCUSATE 100 MG CAPSULE PO (08:48)
[2020-10-19] MEDS: polyethylene glycoL 3350 17 GM POWD.PACK PO (08:49)
[2020-10-19] MEDS: atenoloL 25 MG TABLET PO (08:49)
--- NOTE | 2020-10-19 09:09 | PM.PNPO.1 ---
Subjective Subjective Date Patient Seen: 10/19/20 Time Patient Seen: 09:09 Interval history: Patient states she is doing well overall and is in mild discomfort rest. At this time the patient denies fever, chills, nausea, chest pain, shortness of breath, or urinary retention. Patient reports good sensation throughout the bilateral lower extremities. She notes that she is looking forward to working with physical therapy today, however she notes that she is a bit apprehensive. Exam Vital Signs (past 8 hours): - 10/19/20 02:12 10/19/20 04:00 10/19/20 07:40 Temperature 98.2 F 97.4 F L Pulse Rate 53 L 55 L Respiratory Rate 16 16 Blood Pressure 128/66 124/65 Pulse Oximetry 97 96 98 10/19/20 08:09 Temperature Pulse Rate Respiratory Rate Blood Pressure Pulse Oximetry 96 Oxygen Delivery Method Room Air Oxygen Flow Rate 0 Narrative Exam Narrative: Pleasant 70-year-old female postop day 1 status post ORIF of a right hip fracture with dynamic hip screw. Patient is resting comfortably in bed, is in no acute distress, is alert and oriented x3. Skin is warm and dry, skin surrounding the incision site is free of erythema, warmth, induration, or discharge. Dressing over the incision site is free of strike through and is clean and dry. Good sensation appreciated throughout the bilateral lower extremities to light touch. Hip flexion performed bilaterally, left greater than right. Ankle dorsiflexion, plantar flexion, eversion, inversion performed bilaterally without difficulty or discomfort. DP pulses palpated bilaterally. Calves are soft and nontender, negative Homans sign. No other signs of DVT appreciated. Const General: cooperative, healthy appearing and comfortable Resp Effort & Inspection: normal respiratory effort and able to speak in complete sentences Skin General: no rashes or lesions noted Objective Labs Result Diagrams: 10/19/20 05:17 10/19/20 05:17 Labs: Laboratory Results - last 24 hr 10/19/20 10/19/20 05:17 05:17 WBC 9.4 RBC 3.09 L Hgb 9.5 L Hct 28.2 L MCV 91.2 MCH 30.7 MCHC 33.7 RDW 13.4 Plt Count 172 Sodium 137 Potassium 4.3 Chloride 106 Carbon Dioxide 29 BUN 17 Creatinine 0.62 Estimated GFR > 60.0 BUN/Creatinine Ratio 27.4 H Glucose 112 H Calcium 8.9 Magnesium 2.1 PFSH Medical History History of deviated nasal septum Hyperlipidemia Hypertension Mitral valve prolapse Pelvic fracture Surgical History History of appendectomy History of cataract surgery Family History Mother Colon cancer Breast cancer Brother Bladder cancer Social History household members: significant other and friend(s) Smoking Status: Never smoker Assessment & Plan Post-op Postoperative Procedures: Procedures Operation Date: 10/18/20 08:30 Actual Procedures Side Surgeon p ORIF Hip DHS Right Figueroa Lange MD Postoperative day: 1 Postoperative status: doing well Postoperative plan: ambulate Postoperative plan narrative: Patient is to work on ambulation with the assistance of a front wheeled walker with physical therapy. Patient is to remain weight-bearing as tolerated. Current pain management regimen is to be continued as it is adequately controlled the patient's pain level at this time. Pending successful work with PT patient likely to be discharged home either today or tomorrow. Time Spent With Patient Time with patient: 15-24 minutes
--- NOTE | 2020-10-19 09:29 | P.DS_ITS ---
History of Present Illness History of Present Illness Date Patient Seen: 10/19/20 Time Patient Seen: 09:30 Chief complaint: Fall/R hip pain Narrative: Referred to previous HPI. Discharge Providers Provider Date of admission: 10/17/20 22:03 Discharge Date: 10/19/20 Consults: 10/18/20 03:58 Consult to Orthopedic Surgery Routine Comment: Consulting Provider: Figueroa Lange Reason for consultation: hip fracture Has provider been notified: Yes 10/18/20 11:10 Consult to Discharge Planning Routine Comment: Consult to Physical Therapy Evaluate & Treat Comment: Physician Instructions: Evaluate and Treat Consult to Respiratory Therapy Evaluate & Treat Comment: Physician Instructions: Evaluate and treat Discharge provider: Baljit Gibson PA-C Summary Hospital Course Discharge Diagnosis: Right intertrochanteric femur fracture Status post ORIF right hip fracture with dynamic hip screw Hospital Course: Patient was admitted to the hospital following the above-listed procedure for the above-listed diagnosis. Following the procedure the patient has been convalescing appropriately in her pain has been managed with current pain management regimen. Throughout the course of her time in the hospital the patient has denied fever, chills, nausea, chest pain, shortness of breath, or urinary retention. Dressing over the incision site has remained intact. Hue rose successfully worked on ambulation with the assistance of a front wheeled walker with physical therapy. Sequential compression devices have been used for DVT prophylaxis. Patient has remained weight-bearing as tolerated following the procedure. Status at Discharge Cognitive/behavioral status at discharge: oriented Functional status at discharge: uses cane/walker Overall status at discharge: patient is progressing back to baseline Exam Vital Signs (past 8 hours): - 10/19/20 02:12 10/19/20 04:00 10/19/20 07:40 Temperature 98.2 F 97.4 F L Pulse Rate 53 L 55 L Respiratory Rate 16 16 Blood Pressure 128/66 124/65 Pulse Oximetry 97 96 98 10/19/20 08:09 Temperature Pulse Rate Respiratory Rate Blood Pressure Pulse Oximetry 96 Oxygen Delivery Method Room Air Oxygen Flow Rate 0 Narrative Exam Narrative: Pleasant 70-year-old female postop day 1 status post ORIF of a right hip fracture with dynamic hip screw. Patient is resting comfortably in bed, is in no acute distress, is alert and oriented x3. Skin is warm and dry, skin surrounding the incision site is free of erythema, warmth, induration, or discharge. Dressing over the incision site is free of strike through and is clean and dry. Good sensation appreciated throughout the bilateral lower extremities to light touch. Hip flexion performed bilaterally, left greater than right. Ankle dorsiflexion, plantar flexion, eversion, inversion performed bilaterally without difficulty or discomfort. DP pulses palpated bilaterally. Calves are soft and nontender, negative Homans sign. No other signs of DVT appreciated. Const General: cooperative, healthy appearing and comfortable Resp Effort & Inspection: normal respiratory effort and able to speak in complete sentences Skin General: no rashes or lesions noted Objective Labs Result Diagrams: 10/19/20 05:17 10/19/20 05:17 Labs: Laboratory Results - last 24 hr 10/19/20 10/19/20 05:17 05:17 WBC 9.4 RBC 3.09 L Hgb 9.5 L Hct 28.2 L MCV 91.2 MCH 30.7 MCHC 33.7 RDW 13.4 Plt Count 172 Sodium 137 Potassium 4.3 Chloride 106 Carbon Dioxide 29 BUN 17 Creatinine 0.62 Estimated GFR > 60.0 BUN/Creatinine Ratio 27.4 H Glucose 112 H Calcium 8.9 Magnesium 2.1 PFSH Medical History History of deviated nasal septum Hyperlipidemia Hypertension Mitral valve prolapse Pelvic fracture Surgical History History of appendectomy History of cataract surgery Family History Mother Colon cancer Breast cancer Brother Bladder cancer Social History household members: significant other and friend(s) Smoking Status: Never smoker Discharge Assessment & Plan Assessment and Plan Assessment: Patient is doing well. Plan of Treatment: Patient is to continue physical therapy in the outpatient setting following discharge from the hospital. First postoperative visit in clinic is scheduled for 2 weeks following discharge. Current pain management regimen is to be continued as it is adequately controlled the patient's pain level at this time. Patient is to remain weight-bearing as tolerated with the assistance of a front wheeled walker when ambulating. Dressing over the incision site is to remain clean, dry, and intact. Contact clinic if the dressing is to become damaged or soiled. Patient is to contact the clinic with any concerns or questions. Any signs of increased redness, swelling, warmth, pain, or discharge from around the incision site should be reported to the clinic. Discharge Plan Discharge Plan Patient Disposition: Home Provider Discharge Comment: Patient cleared for discharge pending PT clearance. Discharge orders & Medications Prescriptions: New acetaminophen 325 mg Tablet 975 mg PO TID Qty: 90 RF: 0 ketorolac 10 mg Tablet 10 mg PO Q6HR PRN (Reason: Pain, Mild (1-3)) Qty: 60 RF: 0 Continued atenolol [Tenormin] 25 mg tablet 25 mg PO BID RF: 0 simvastatin 20 mg tablet 20 mg PO QPM RF: 0 Diet/Activity/Treatments Diet: Regular Activity: Weight-bearing as tolerated with the assistance of front wheeled walker. Skin/Wound/Dressing Care Report to your healthcare provider any signs of infection, such as:: chills, fever, night sweats, increased pain, unusual drainage and unusual redness Dressing: Dressing over the incision site is to remain intact. Contact the clinic if the dressing becomes damaged or soiled. Other wound treatment: Avoid placing topical ointments over the incision site. Avoid soaking the incision site. Visit Report/Discharge Packet Instructions: DI for Heart Failure, DI for Hip Fracture, DI for Constipation, How to Prevent Falls, DI for Open Reduction Internal Fixation Surgery, DI for Prescription Opioid Use Stand Alone Forms: Surgery Discharge
--- NOTE | 2020-10-19 09:40 | PT.IPTN ---
Current Diagnoses Displaced fracture of greater trochanter of right femur, initial encounter for closed fracture (10/17/20) Surgery Performed Operation Date: 10/18/20 08:30 Actual Procedures p ORIF Hip DHS(Right) - Figueroa Lange MD Physical Therapy Treatment Note M2 PT-IP Current Condition Start: 10/18/20 16:35 Freq: NEEDED Status: Active Protocol: Document 10/18/20 15:10 AB (Rec: 10/18/20 16:53 AB [email or web address]) Physical Therapy Current Condition Current Condition Evaluation Date 10/18/20 Treatment Diagnosis R femur fx s/p ORIF; difficulty in walking Onset Date 10/17/20 Weight Bearing Status Weight Bearing Status Weight Bear as Tolerated Allowed Weight Bearing Amount (enter % RLE WBAT or #) (%) M3 PT-IP Subjective Start: 10/18/20 16:35 Freq: NEEDED Status: Active Protocol: Document 10/19/20 09:40 AB (Rec: 10/19/20 11:50 AB [email or web address]) Subjective Physical Therapy Visit Type Type Treatment Note Visit Start Time 09:40 Visit Stop Time 11:30 Total Visit Minutes 50 Notes pt seen for split visits: 940 am to 1000 am and 1100 am to 1130 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 Physical Therapy Visit Comments Patient Comments pt is agreeable to do PT Therapy Pain Assessment Pain When Pain Assessed At Rest Pain Present Pain Present Pain Reported Location Right Hip Intensity 4 Scale Used Numeric (0 - 10) Pain Management Techniques Apply Cold,Modification of Treatment,Re-positioning, Timing of Activity with Medications M4 PT-IP Mobility and Gait Start: 10/18/20 16:35 Freq: NEEDED Status: Active Protocol: Document 10/19/20 09:40 AB (Rec: 10/19/20 11:50 AB [email or web address]) PT-Bed Mobility Assessment Supine to Sit Supine to Sit Minimal Assistance PT-Transfer Assessment Sit to and From Stand Sit to and from Stand Minimal Assistance,Moderate Assistance,1 Person Assistance ,Use of Upper Extremities Equipment Transfer Assistive Device Gait Belt,Front Wheeled Walker Orthotic/Prosthetic Devices or Brace: No Transfers Transfer Destination Toilet Transfer Technique ambulated using FWW Transfer Ability Level of Assist Moderate Assistance,1 Person Assistance,Use of Upper Extremities Comments Mobility Comments pt requested to use the toilet . completed supine to sit with HOB elevated min A with RLE movement. cued for techniques. pt completed sit to stand mod A and cues. pt with unsteady RLE with (+) knee buckling. cued for quads acivation. ambulated ~ 15 ft to the toilet using FWW mod A and cues. required stabilization of RLE. completed descent to the toilet using grab bar mod A for control. pt tends to lean away from L side and pt stated that this is due to pain. pt wanted to use the toilet for awhile. charly light place within reach. informed NAC. checked back to work with pt again after toilet use. pt completed supinet to sit with HOB elevated min A with RLE and cues. completed sit to stand min to mod A for steadiness and ambulated to the chair using FWW min to mod A and cues for quads activation. educated pt on techniques LE stability and quads activation. completed sit<>stand x 4 reps initial mod A and then just CGA towards the end. pt ambulated more in room ~ 30 ft using FWW min A and cues for quads activation. able to stabilize R knee better but continues to require cues for safety and quads activation. pt stated that she wants to put her pants on. pt was able to position underwear and pants. completed sit to stand CGA but required mod A to balance while pt manage brief and pants. pt cued for stability. pt agreed to stay up on chair. call light and table placed within reach. caregiver training set up at 1 pm today. Gait Assessment Gait Gait Assistance Required: Minimum Assistance,Moderate Assistance,1 Person Assist Distance (Feet) 30 Able to Maintain Weight Bearing Status Yes During Gait Assistive Devices Assistive Device Gait Belt,Front Wheeled Walker Orthotic/Prosthetic Devices or Brace: No Gait Deviations General Gait Pattern Antalgic,Decreased Stride Length,Decreased Feet Clearance Factors Limiting Gait Function Factors Limiting Gait Function Decreased Activity Tolerance, Decreased Strength,Limited Range of Motion,Pain,Poor Balance,Poor Safety Awareness M5 PT-IP Objective Assessments Start: 10/18/20 16:35 Freq: NEEDED Status: Active Protocol: Document 10/18/20 15:10 AB (Rec: 10/18/20 16:53 AB [email or web address]) Orientation Orientation/Cognition Level of Alertness Alert Orientation Name,Place,Situation Safety Awareness Decreased Safety Awareness Gross Range of Motion Lower Extremity ROM Assessment Right Impaired Impairments increase RLE muscle guarding limiting PROM Strength Lower Extremity Strength Assessment Right Impaired Knee 3-/5 Muscle Tone Muscle Tone WNL Yes M6 PT-IP Treatment Start: 10/18/20 16:35 Freq: NEEDED Status: Active Protocol: Document 10/19/20 09:40 AB (Rec: 10/19/20 11:50 AB [email or web address]) Physical Therapy Treatment Education Education Provided Weight Bearing Status,Safety M7 PT-IP Assessment and Plan Start: 10/18/20 16:35 Freq: NEEDED Status: Active Protocol: Document 10/19/20 09:40 AB (Rec: 10/19/20 11:50 AB [email or web address]) PT Summary Assessment and Plan Potential Rehabilitation Potential Good Summary Impairments Pain,ROM,Strength,Balance, Coordination,Sensation,Tone, Cognition,Bed Mobility, Transfers,Gait,Activity Tolerance Progress Towards Goals Slow Progress due to Pain Assessment Summary pt requiring min to mod A with mobility and with (+) R knee buckling during ambulation. caregiver training set up at 1 pm today and will determine safe d/c plan. will continue to assess. Goals Bed Mobility Goal Standby Assistance Transfer Goal Standby Assistance,Front Wheeled Walker Gait Goal Standby Assistance,Front Wheel Walker Gait Distance 100 Days to Meet Goals 5 Frequency of Treatment Frequency Of Treatment Twice a Day Treatment Plan Physical Therapy Treatment Plan Bed Mobility Training,Transfer Training,Gait Training, Therapeutic Exercise,Balance Retraining,Post Op Education, Discharge Planning,Hot or Cold Pack,Neuromuscular Re-ed, Coordination Retraining,Manual Therapy Precautions Other Precautions RLE WBAT Recommendations To Nursing Amount of Assist Needed 1 Person Assist Discharge Recommendations PT Discharge Recommendations Home with 14/12 Assist Available,Home Health Transportation Needs at Discharge Private Vehicle
--- NOTE | 2020-10-19 11:10 | PM.PN.1 ---
Exam Vital Signs (past 8 hours): - 10/19/20 04:00 10/19/20 07:40 10/19/20 08:09 Temperature 98.2 F 97.4 F L Pulse Rate 53 L 55 L Respiratory Rate 16 16 Blood Pressure 128/66 124/65 Pulse Oximetry 96 98 96 10/19/20 10:00 Temperature Pulse Rate Respiratory Rate Blood Pressure Pulse Oximetry 97 Oxygen Delivery Method Room Air Oxygen Flow Rate 0 Objective Labs Result Diagrams: 10/19/20 05:17 10/19/20 05:17 Labs: Laboratory Results - last 24 hr 10/19/20 10/19/20 05:17 05:17 WBC 9.4 RBC 3.09 L Hgb 9.5 L Hct 28.2 L MCV 91.2 MCH 30.7 MCHC 33.7 RDW 13.4 Plt Count 172 Sodium 137 Potassium 4.3 Chloride 106 Carbon Dioxide 29 BUN 17 Creatinine 0.62 Estimated GFR > 60.0 BUN/Creatinine Ratio 27.4 H Glucose 112 H Calcium 8.9 Magnesium 2.1 PFSH Medical History History of deviated nasal septum Hyperlipidemia Hypertension Mitral valve prolapse Pelvic fracture Surgical History History of appendectomy History of cataract surgery Family History Mother Colon cancer Breast cancer Brother Bladder cancer Social History household members: significant other and friend(s) Smoking Status: Never smoker
--- NOTE | 2020-10-19 13:00 | PT.IPTN ---
Current Diagnoses Displaced fracture of greater trochanter of right femur, initial encounter for closed fracture (10/17/20) Surgery Performed Operation Date: 10/18/20 08:30 Actual Procedures p ORIF Hip DHS(Right) - Figueroa Lange MD Physical Therapy Treatment Note M2 PT-IP Current Condition Start: 10/18/20 16:35 Freq: NEEDED Status: Active Protocol: Document 10/18/20 15:10 AB (Rec: 10/18/20 16:53 AB [email or web address]) Physical Therapy Current Condition Current Condition Evaluation Date 10/18/20 Treatment Diagnosis R femur fx s/p ORIF; difficulty in walking Onset Date 10/17/20 Weight Bearing Status Weight Bearing Status Weight Bear as Tolerated Allowed Weight Bearing Amount (enter % RLE WBAT or #) (%) M3 PT-IP Subjective Start: 10/18/20 16:35 Freq: NEEDED Status: Active Protocol: Document 10/19/20 13:00 AB (Rec: 10/19/20 14:41 AB [id number]) Subjective Physical Therapy Visit Type Type Treatment Note Visit Start Time 13:00 Visit Stop Time 14:00 Total Visit Minutes 60 Number of 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 Physical Therapy Visit Comments Patient Comments pt is agreeable to do PT; SO in room for caregiver training M4 PT-IP Mobility and Gait Start: 10/18/20 16:35 Freq: NEEDED Status: Active Protocol: Document 10/19/20 13:00 AB (Rec: 10/19/20 14:41 AB [id number]) PT-Bed Mobility Assessment Supine to Sit Supine to Sit Standby Assistance Sit to Supine Sit to Supine Minimal Assistance,1 Person Assistance Scooting Scooting to Edge of Bed Standby Assistance PT-Transfer Assessment Sit to and From Stand Sit to and from Stand Contact Guard Assistance Equipment Transfer Assistive Device Gait Belt,Front Wheeled Walker Orthotic/Prosthetic Devices or Brace: No Transfers Transfer Destination Bed,Chair Transfer Technique ambulated using FWW Transfer Ability Level of Assist Contact Guard Assistance, Minimal Assistance,1 Person Assistance,Use of Upper Extremities Comments Mobility Comments pt sitting on chair. caregiver training conducted. educated pt's significant other regarding pt's mobility, RLE strength and how to assist and cues and use of gait belt. pt was able to put safety belt on pt. completed sit <>stand x 4 reps CGA and initial cues from PT and then able to complete with SO assisting and cueing. assisted pt with sit to stand and ambulation in room CGA to min A. pt with occasionaly slight R knee buckling but able to control with FWW use. pt ambulated to the bed using FWW. completed sit to supine min A with LE and educated SO on techniques and how to assist pt. pt completed supine to sit SBA. pt completed bed mobility again with SO assisting and completed safely . SO confirmed that pt has a step to enter the house. educated pt on how to do stair climbing using FWW. pt ambulated in the hallway ~ 30 ft using FWW CGA. completed up /down platform step using FWW min A from PT with pt stepping backwards so pt can use FWW for support for ascending step . pt completed stair climbing again with SO and completed safely. pt ambulated back to her room and wants to sit on her chair. educated pt on car transfers, step-in shower transfer, HHPT recommendation at this time . pt has no other concerns and agreed to go home today. SO also agreed and comfortable with assist pt. Gait Assessment Gait Gait Assistance Required: Contact Guard Assist,Minimum Assistance,1 Person Assist Distance (Feet) 30 Able to Maintain Weight Bearing Status Yes During Gait Assistive Devices Assistive Device Gait Belt,Front Wheeled Walker Orthotic/Prosthetic Devices or Brace: No Gait Deviations General Gait Pattern Decreased Stride Length, Decreased Feet Clearance Factors Limiting Gait Function Factors Limiting Gait Function Decreased Activity Tolerance, Decreased Strength,Limited Range of Motion,Pain,Poor Balance,Poor Safety Awareness Stair Climbing Assessment Evaluation Level of Assist On Stairs Minimal Assistance,1 Person Assistance Devices Stair Climbing Assistive Devices Front Wheel Walker Technique/Endurance Stair Climbing Direction Ascend and Descend Stair Climbing Technique Step to Step Number of Steps Climbed 1 Stair Climbing Set # Repetitions (reps) 2 M5 PT-IP Objective Assessments Start: 10/18/20 16:35 Freq: NEEDED Status: Active Protocol: Document 10/18/20 15:10 AB (Rec: 10/18/20 16:53 AB [email or web address]) Orientation Orientation/Cognition Level of Alertness Alert Orientation Name,Place,Situation Safety Awareness Decreased Safety Awareness Gross Range of Motion Lower Extremity ROM Assessment Right Impaired Impairments increase RLE muscle guarding limiting PROM Strength Lower Extremity Strength Assessment Right Impaired Knee 3-/5 Muscle Tone Muscle Tone WNL Yes M6 PT-IP Treatment Start: 10/18/20 16:35 Freq: NEEDED Status: Active Protocol: Document 10/19/20 13:00 AB (Rec: 10/19/20 14:41 AB [id number]) Physical Therapy Treatment Education Education Provided Precautions,Weight Bearing Status,Safety M7 PT-IP Assessment and Plan Start: 10/18/20 16:35 Freq: NEEDED Status: Active Protocol: Document 10/19/20 13:00 AB (Rec: 10/19/20 14:41 AB [id number]) PT Summary Assessment and Plan Potential Rehabilitation Potential Good Summary Impairments Pain,ROM,Strength,Balance, Coordination,Sensation,Bed Mobility,Transfers,Gait, Activity Tolerance Progress Towards Goals Progressing Toward Goals Assessment Summary caregiver training conducted and pt's significant other is able to assist pt safely. pt plans to go home later today with SO to assist and will also benefit from HHPT. Goals Bed Mobility Goal Standby Assistance Transfer Goal Standby Assistance,Front Wheeled Walker Gait Goal Standby Assistance,Front Wheel Walker Gait Distance 100 Days to Meet Goals 5 Frequency of Treatment Frequency Of Treatment Twice a Day Treatment Plan Physical Therapy Treatment Plan Bed Mobility Training,Transfer Training,Gait Training, Therapeutic Exercise,Balance Retraining,Post Op Education, Discharge Planning,Hot or Cold Pack,Neuromuscular Re-ed, Coordination Retraining,Manual Therapy Precautions Other Precautions RLE WBAT Recommendations To Nursing Amount of Assist Needed 1 Person Assist Discharge Recommendations PT Discharge Recommendations Home with 14/12 Assist Available,Home Health Transportation Needs at Discharge Private Vehicle
--- NOTE | 2020-10-19 13:28 | CM.IDA ---
Addendum entered by HARDEEP Tompkins 10/19/20 15:26: Faxed HH referral to [facility] requested PT/OT. Faxed facesheet, H+P, completed and signed [facility], order. provided [facility] brochure to patient and partner. Original Note: Initial DCP Assessment Note Patient is a 70 yo female, resident of [facility] near [place], presents after GLF w/subsequent hip fx, now POD#1 from right ORIF (by Dr Lange) PCP: Unlisted Payer: [facility] Reviewed chart. Met w/patient and her partner Adolfo, introduced role. Patient explained that she is active and inpd. at baseline and fearful she will over do it once home. Patient's partner Adolfo will be with her to assist once home and patient eager to return home, does not want to consider SNF. Discussed outpatient vs HH for therapy, patient and S.O. agree that HH PT/OT would be beneficial. Patient requests referral to [facility]. Then spoke w/PT Vannessa who feels patient may benefit from an additional evening in the hospital and will know more about safety of this plan once she works w/patient again this afternoon w/S.O. there for cg training. Plan: DC likely home w/[facility] PT/OT this afternoon vs tomorrow. Will have Dr Escamilla sign F2F for this referral. HARDEEP Tompkins Discharge Planning/Care Management CM Discharge Assessment Start: 10/19/20 13:19 Freq: Status: Active Protocol: Document 10/19/20 13:20 DEEDEE (Rec: 10/19/20 13:27 [id number]) Discharge Planning Assessment Assigned Surface [employer] We[employer] Officer HARDEEP Willams DPOA/Assigned Designee Name Adolfo Turner, partner Contact Information [phone] Advance Directives? No Advance Directives on File No History Provided By Patient,Significant Other, Medical Record Prior Living Arrangements House Household Members significant other,friend(s) Type of transporation used prior to Drives own vehicle admit Willing to Return to Facility? No Independent with ADL's Yes Is patient alert and oriented? Yes Patient/Family Preference Home with Home Health Barriers to Discharge No Discharge Plan Home with Home Health Transportation Arrangement S.O. Referrals Initiated Home Health Additional Comment [facility] Medicare Choice List Provided Yes SNF/HH Preference bc HH
--- NOTE | 2020-10-19 14:28 | PM.DS.1 ---
History of Present Illness History of Present Illness Date Patient Seen: 10/19/20 Time Patient Seen: 14:28 Chief complaint: Fall/R hip pain Narrative: Per Roselyn Rosenthal, [employer]: Patient is a 70-year-old female Madhavi Cruz who presents to the ED with a chief complaint of a ground level fall in which she landed on her right hip and now has significant pain. She denies any head neck or back pain. She does not take blood thinners. Denies hitting her head or loss of consciousness. She denies any prodromal symptoms and states that she was merely pulled over by her dog(Hungarian Fernando) getting tangled up in his leash. She has significant pain with any range of motion and denies any numbness, tingling or weakness. Patient denies chest pain or shortness of breath. Patient has a history of mitral valve prolapse, hyperlipidemia, hypertension, and a pelvis fracture a few years ago that did not require surgical intervention. She had a bone density of few years ago but was only required to take calcium and vitamin-D. Upon admit to the floor patient is resting comfortably in bed and only has pain with movement her pain is well controlled at 4/10 at this time. Patient's vitals upon admit temp 98.7?, BP 160/72, HR 72, RR 17, O2 saturation 98% on room air. Patient's labs CBC WNL, CMP unremarkable. Pelvis CT:Comminuted trochanteric fracture of the right hip. Right Hip Xray:Minimally displaced trochanteric fracture of the right hip. Patient admitted for trochanter right hip fracture, NPO at midnight will have surgery tomorrow. Discharge Providers Provider Date of admission: 10/17/20 22:03 Discharge Date: 10/19/20 Consults: 10/18/20 03:58 Consult to Orthopedic Surgery Routine Comment: Consulting Provider: Figueroa Lange Reason for consultation: hip fracture Has provider been notified: Yes 10/18/20 11:10 Consult to Discharge Planning Routine Comment: Consult to Physical Therapy Evaluate & Treat Comment: Physician Instructions: Evaluate and Treat Consult to Respiratory Therapy Evaluate & Treat Comment: Physician Instructions: Evaluate and treat Discharge provider: Nahum Escamilla DO Summary Hospital Course Discharge Diagnosis: 1. Right greater trochanter hip fracture secondary to ground level fall, acute, present on admission, likely pathologic secondary to osteoporosis. 2. Essential hypertension, chronic 3. hyperlipidemia Hospital Course: This is a 70-year-old female with a past medical history of hypertension hyperlipidemia who was admitted after ground level fall suffering a right greater trochanteric hip fracture. She underwent ORIF with orthopedic surgery. Her fall is likely pathologic secondary to osteoporosis based on the nature of her fall. She had an uncomplicated course after surgery and did well with physical therapy and was able to be discharged home the day after her surgery. She was discharged with Tylenol and ketorolac for pain control as she did develop some nausea and did not tolerate opiates well. No changes were made to her usual atenolol her simvastatin. Patient will follow-up with orthopedics as an outpatient. Status at Discharge Cognitive/behavioral status at discharge: oriented Overall status at discharge: patient is progressing back to baseline Exam Vital Signs (past 8 hours): - 10/19/20 07:40 10/19/20 08:09 10/19/20 10:00 Temperature 97.4 F L Pulse Rate 55 L Respiratory Rate 16 Blood Pressure 124/65 Pulse Oximetry 98 96 97 10/19/20 12:15 10/19/20 14:00 Temperature Pulse Rate Respiratory Rate Blood Pressure Pulse Oximetry 97 97 Oxygen Delivery Method Room Air Oxygen Flow Rate 0 Narrative Exam Narrative: General: Patient is a well-developed, well-nourished female who appears younger than stated age, in mild discomfort at this time. HEENT: Normocephalic, atraumatic, extraocular muscles intact, oral pharynx is clear and mucous membranes are moist. Neck is supple and symmetric, trachea is midline, no adenopathy, no thyroid enlargement, nontender, no masses palpated. Negative for JVD Chest: Normal AP diameter and contour without kyphoscoliosis, no nasal flaring, retractions, or tachypneic labored Lungs: Auscultation of all lung gonzalez are clear without adventitious sounds, wheezes, rhonchi, or rales. Cardio: S1 & S2 with regular rate and rhythm without murmur, rubs, or gallops, no carotid bruit, no cardiac pulsations present. Abdomen: Soft nontender, negative for organomegaly, or masses. Bowel sounds are present in all 4 quadrants without guarding or rebound, no CVA tenderness. Musculoskeletal: right hip dressing c/d/i. no edema. Skin: Warm dry and intact without rashes, ulcerations or petechiae. Neuro: Alert and orientated x3,sensation to touch intact, no gross deficits noted of cranial nerves. Psych: Patient has a well-kept appearance, appropriate affect, mental status attitude thought context and judgment are appropriate for age. Objective Labs Result Diagrams: 10/19/20 05:17 10/19/20 05:17 Labs: Laboratory Results - last 24 hr 10/19/20 10/19/20 05:17 05:17 WBC 9.4 RBC 3.09 L Hgb 9.5 L Hct 28.2 L MCV 91.2 MCH 30.7 MCHC 33.7 RDW 13.4 Plt Count 172 Sodium 137 Potassium 4.3 Chloride 106 Carbon Dioxide 29 BUN 17 Creatinine 0.62 Estimated GFR > 60.0 BUN/Creatinine Ratio 27.4 H Glucose 112 H Calcium 8.9 Magnesium 2.1 PFSH Medical History History of deviated nasal septum Hyperlipidemia Hypertension Mitral valve prolapse Pelvic fracture Surgical History History of appendectomy History of cataract surgery Family History Mother Colon cancer Breast cancer Brother Bladder cancer Social History household members: significant other and friend(s) Smoking Status: Never smoker Discharge Assessment & Plan Assessment and Plan Assessment: Patient is doing well. Plan of Treatment: Patient is to continue physical therapy in the outpatient setting following discharge from the hospital. First postoperative visit in clinic is scheduled for 2 weeks following discharge. Current pain management regimen is to be continued as it is adequately controlled the patient's pain level at this time. Patient is to remain weight-bearing as tolerated with the assistance of a front wheeled walker when ambulating. Dressing over the incision site is to remain clean, dry, and intact. Contact clinic if the dressing is to become damaged or soiled. Patient is to contact the clinic with any concerns or questions. Any signs of increased redness, swelling, warmth, pain, or discharge from around the incision site should be reported to the clinic. Discharge Plan Discharge Plan Patient Disposition: Home Provider Discharge Comment: You were admitted to the hospital after a hip fracture. This was repaired with Orthopedic surgery. Please follow-up with them as directed. For pain control please continue Tylenol and ketorolac. Ketorolac is an NSAID medication and should not be taken with other NSAIDs including ibuprofen, naproxen, etc. no other medication changes are necessary at this time Discharge orders & Medications Prescriptions: New acetaminophen 325 mg Tablet 975 mg PO TID Qty: 90 RF: 0 ketorolac 10 mg tablet 10 mg PO Q6H PRN (Reason: pain) 7 Days Qty: 28 RF: 0 Continued atenolol [Tenormin] 25 mg tablet 25 mg PO BID RF: 0 simvastatin 20 mg tablet 20 mg PO QPM RF: 0 Diet/Activity/Treatments Diet: Regular Activity: Weight-bearing as tolerated with the assistance of front wheeled walker. Skin/Wound/Dressing Care Report to your healthcare provider any signs of infection, such as:: chills, fever, night sweats, increased pain, unusual drainage and unusual redness Dressing: Dressing over the incision site is to remain intact. Contact the clinic if the dressing becomes damaged or soiled. Other wound treatment: Avoid placing topical ointments over the incision site. Avoid soaking the incision site. Visit Report/Discharge Packet Instructions: DI for Heart Failure, DI for Hip Fracture, DI for Constipation, How to Prevent Falls, DI for Open Reduction Internal Fixation Surgery, DI for Prescription Opioid Use Stand Alone Forms: Surgery Discharge
--- NOTE | 2020-10-19 14:59 | PT-IP ANOTE ---
FWW adjusted and dispensed to pt. papers signed.
--- NOTE | 2020-10-19 15:03 | PC.NURSE ---
Discharge note: Patient discharged home as ordered by MD and Ortho, cleared by PT. Discussed importance of F/U with Ortho in 1 week, new medication, dressing care, and signs of worsening symptoms. FWW provided by PT, and Home Health arranged by Mary Lou in Case Management. Home via private vehicle accompanied by spouse.
== END 2020-10-19 15:06 | disposition home or self-care (01) | DRG 482 ==
LOC: ED 19:00 → AC 22:04
PROVIDERS: Internal Medicine; Orthopaedic Surgery; Admitting Provider Nurse Practitioner Family; Emergency Provider Emergency Medicine; Referring Provider Emergency Medicine; Visit Provider Nurse Practitioner Family
PROC: 0QS604Z Reposition Right Upper Femur with Internal Fixation Device, Open Approach (ICD-10-PCS; principal; 2020-10-18 08:30)
DX: M80.051A Age-related osteoporosis with current pathological fracture, right femur, initial encounter for fracture (principal); I10 Essential (primary) hypertension; E78.5 Hyperlipidemia, unspecified; I34.1 Nonrheumatic mitral (valve) prolapse; Z87.891 Personal history of nicotine dependence; W18.39XA Other fall on same level, initial encounter; Y92.9 Unspecified place or not applicable; Z20.822 Contact with and (suspected) exposure to COVID-19
CPT/HCPCS: 36415; 51702; 72192; 73502; 76000; 80048; 80053; 82962; 83735; 85025; 85027; 85610; 87635; 93005; 94760; 96374; 96375; 96376; 97116; 97162; 97530; 99285; C9803; J0690; J1100; J1170; J1650; J1885; J2250; J2405; J2704; J3010

== ENCOUNTER 2021-10-19 21:04 | Emergency (ER) | payer OTHER, SELFPAY ==
[2020-10-18 07:45] VITALS: BMI 27.1
[2021-10-19 21:08] VITALS: BP 173/78; PULSE 69; RESP 16; TEMP 37.2; O2SAT 96; BMI 23.5
--- NOTE | 2021-10-19 21:11 | DI.RAD.S_ITS ---
PROCEDURE: XR FINGER RT MIN 2V INDICATIONS: twisting injury TECHNIQUE: AP hand, 2 views of the 4th finger(s) acquired. COMPARISON: None. FINDINGS: Bones: There is an oblique comminuted fracture of the 4th left proximal phalanx without displacement. No involvement of the articular surfaces. Soft tissues: No suspicious soft tissue calcifications. IMPRESSION: Oblique comminuted nondisplaced fracture through the left 4th proximal phalanx Approved by: Gianni Chawla M.D. on 10/19/2021 at 20:59
[2021-10-19 21:48] VITALS: PULSE 60; O2SAT 96
--- NOTE | 2021-10-19 21:49 | ED.GENADULT ---
HPI - General Adult General Chief complaint: Extremity Injury, Upper Stated complaint: Broken ring finger rt hand Time Seen by Provider: 10/19/21 21:25 Source: patient and family Mode of arrival: Ambulatory History of Present Illness HPI narrative: 71-year-old [id number] female who is here for evaluation of a injury to her right ring finger. She states that she was walking her dog is someone wrote by on a bicycle and the dog lunged. She thinks that her finger got caught up in the leash. No other injuries from the event. She has pain isolated to her right ring finger. She did try to splint with a popsicle stick Related Data Home Medications Medication Instructions Recorded Confirmed atenolol 25 mg tablet (Tenormin) 25 mg PO BID 10/18/20 10/18/20 simvastatin 20 mg tablet 20 mg PO QPM 10/18/20 10/18/20 Previous Rx's Medication Instructions Recorded acetaminophen 325 mg tablet 975 mg PO TID #90 tab 10/19/20 Allergies Allergy/AdvReac Type Severity Reaction Status Date / Time Penicillins Allergy Unknown Verified 10/17/20 19:34 Review of Systems Musculoskeletal Musculoskeletal: Reports system reviewed and no additional complaints, except as documented Integumentary/Breasts Skin/Breast: Reports system reviewed and no additional complaints, except as documented Neurologic Neurologic: Reports system reviewed and no additional complaints, except as documented Patient History Medical History History of deviated nasal septum Hyperlipidemia Hypertension Mitral valve prolapse Pelvic fracture Surgical History History of appendectomy History of cataract surgery Family History Mother Colon cancer Breast cancer Brother Bladder cancer Social History household members: significant other and friend(s) Smoking Status: Never smoker Smoking Status: Never smoker alcohol intake frequency: a few times a week Substance Use Type: does not use Exam Initial Vital Signs Initial Vital Signs: Vital Signs Temperature 98.9 F 10/19/21 21:08 Pulse Rate 69 10/19/21 21:08 Respiratory Rate 16 10/19/21 21:08 Blood Pressure 173/78 H 10/19/21 21:08 Pulse Oximetry 96 10/19/21 21:08 Cardio Pulses: radial pulses present on the right Skin General: no rashes or lesions noted Neuro Sensory Exam: no sensory deficits noted Extrem Other: Right elbow and right wrist unremarkable. Tenderness to palpation the proximal aspect of the right ring finger in between the MCP and the IP joint. The rest of her right hand exam is unremarkable. Procedures Orthopedic Splinting/Casting Injury #1: Side: right Upper Extremity Injury Location: finger Upper Extremity Immobilizer: aluminum form splint and jb tape Post splinting neuro exam: intact Post splinting vascular exam: intact Placed by: Provider Course Orders Ordered: ED Orders 10/19/21 21:11 XR finger RT min 2V Stat Vital Signs Vital signs: Vital Signs - 8 hr 10/19/21 21:08 Temperature 98.9 F Pulse Rate 69 Respiratory Rate 16 Blood Pressure 173/78 H Pulse Oximetry 96 Medical Decision Making Imaging Data Extremity x-ray #1: Radiologist's Impression: Fracture of the proximal phalanx of the right ring finger. MDM Narrative Medical decision making narrative: Patient is neurovascularly intact. Fracture noted on the x-ray of the right ring finger in the area where she is having discomfort. She was placed in an aluminum splint. She was given care instructions and return precautions. She expressed understanding and agreement. Discharge Plan Departure Patient Disposition: Home Clinical Impression: Finger fracture, right Instructions: DI for Finger Fracture Activity Restrictions/Additional Instructions: Keep the splint on like we discussed. You can contact the Orthopedic Department at the number provided below for a follow-up. Return to the emergency department for any new or worsening symptoms. Prescriptions: No Action atenolol [Tenormin] 25 mg tablet 25 mg PO BID 0RF simvastatin 20 mg tablet 20 mg PO QPM 0RF acetaminophen 325 mg Tablet 975 mg PO TID Qty: 90 0RF Referrals: Pau Crandall PA-C [Primary Care Provider] - Phil Meek MD [Physician] -
[2021-10-19 21:50] VITALS: BP 161/79; PULSE 60
== END 2021-10-19 21:59 | disposition home or self-care (01) ==
PROVIDERS: Emergency Provider Emergency Medicine; PCP Student in an Organized Health Care Education/Training Program
DX: S62.644A Nondisplaced fracture of proximal phalanx of right ring finger, initial encounter for closed fracture (principal); X50.1XXA Overexertion from prolonged static or awkward postures, initial encounter
CPT/HCPCS: 73140; 99283